=== PATIENT | male | born 1955 | race Caucasian/White ===

== ENCOUNTER 2017-04-06 08:00 | Inpatient (IN) | payer OTHER ==
[~2017-04-06] VITALS: Ht 180.3 cm; Wt 136.4 kg
--- NOTE | ~2017-04-06 | ESTC ---
Cardiac Perfusion Imaging Demographics Patient Name BESSY Sherwood Gender Male Patient Number [id number] Race Visit Number [id number] Ethnicity Corporate ID Room Number G3399 Accession Number [id number] Height 71 inches Date of 1955 Weight 300 pounds Raji Menezes MD Interpreting Lisa Barrett MD Date of study 04/13/2017 Physician Supervising /CORY Queen NM Technologist Paige Vargas APRN Ordering Physician Lisa Barrett MD Stress animal care technician Stress ECG Reading Thad Queen Nurse Gilberto Hermes Physician MAIRA Medications Reviewed with Patient prior to Procedure. Procedure Procedure Type: Nuclear Stress Test:Exercise, Cardiolite Stress Test Procedure Start time: 04/13/2017 12:30 Risk Factors The patient risk factors include:obesity, physical activity, Current/Recent(w/in 1 year) tobacco use, hypercholesterolemia, family history of premature CAD, insulin treated diabetes mellitus, chronic lung disease and dyslipidemia. Conclusions Summary Cardiolite SPECT images demonstrates a inferior wall defect on the rest images with complete redistribution on the stress images. No evidence of inducible reversible defect. Normal TID ratio of 0.95 Gated images demonstrate normal left ventricular systolic function without inducible wall motion abnormalities rendering the above findings most consistent with attenuation defect. LVEF is 65% Stress Protocols Resting HR:78 bpm Resting BP:141/69 mmHg Pre-stress physical exam: Patient has history of COPD and Asthma. Needs preop risk evaluation due to complaints of shortness of breath and "chest Pain". Has history of diabetes mellitus Stress Protocol:Exercise Peak HR:137 bpm HR response: Appropriate Peak BP:178/85 mmHg BP response: Appropriate Predicted HR: 161 bpm HR/BP product:53800 % of predicted HR: 85 Test duration:06:00 min Reason for termination:Target heart rate Exercise effort:Fair Perceived exertion:19 ECG Findings RSR without ST or T wave changes Arrhythmias None Symptoms Extreme shortness of breath. Stress Interpretation Appropriate hemodynamic response to exercise. No significant ST-T wave changes with exercise. EKG portion is negative for ischemia by diagnostic criteria. The Figueredo Treadmill score was +6 .This corresponds to a low risk stress test. Stress supervision and interpretation provided by Rose Mary Oneil APRN . Imaging Results Applied corrections - Motion correction applied High risk findings Summed scores - Summed stress score: 3 - Summed rest score: 8 - Summed difference score: -5 Stress ejection Ejection fraction:65 % EDV :142 ml ESV :49 ml Stroke volume :93 ml LV mass :166 gr Imaging Protocols Rest Stress Isotope:Tc99m Sestamibi IV Isotope: Tc99m Sestamibi IV Isotope dose:15.3 mCi Isotope dose:47.4 mCi Date:04/13/2017 11:22 Date:04/13/2017 12:59 Technique: SPECT Technique: Gated Supine SPECT Supine IV remains in place after procedure. Scan Time:45-60 minutes post Scan Time:15-30 minutes post injection injection Medical History Admission Data Admission date: 04/13/2017 Admission Time: 07:32 Hospital Status: Inpatient. Signatures dtt: Arnold Gonzalez (cardio) dtd: 04/13/17 1230 Physician Self Edit
[2017-04-06] MEDS ORDERED: LANTUS (IN100 UNIT/M SUB-Q (08:11)
[2017-04-06] MEDS ORDERED: LIPITOR80 MG PO (08:12)
[2017-04-06] MEDS ORDERED: NOVOLOG FL100 UNIT/1 SUB-Q (08:12)
[2017-04-06] MEDS ORDERED: TRICOR145 MG PO (08:13)
[2017-04-06] MEDS ORDERED: TENORMIN25 MG PO (08:13)
[2017-04-06] MEDS ORDERED: ZYLOPRIM300 MG PO (08:13)
[2017-04-06] MEDS ORDERED: LEVOTHROID (S125 MCG PO (08:14)
[2017-04-06] MEDS ORDERED: LYRICA100 MG PO (08:15)
[2017-04-06] MEDS ORDERED: LASIX20 MG PO (08:15)
[2017-04-06] MEDS ORDERED: ONGLYZA5 MG PO (08:16)
[2017-04-06] MEDS ORDERED: PRILOSEC20 MG PO (08:16)
[2017-04-06] MEDS ORDERED: LODINE400 MG PO (08:16)
[2017-04-06] MEDS ORDERED: ZYRTEC10 MG PO (08:17)
[2017-04-06] MEDS ORDERED: PERCOCET 5-3251 EACH PO (08:19)
[2017-04-06] MEDS ORDERED: CPAP INH (09:15)
--- NOTE | 2017-04-13 14:04 | NUR ---
PATIENT AND UPSET REGARDING HAVING TO HAVE STRESS TEST. APPOLOGIZED BUT EXPLAINED WE DIDN'T WANT HIM TO HAVE A HEART ATTACK IN SURGERY. STATED, "WE ALL HAVE TO GO SOMETIME". PATIENT STATES HE HAS WAITED 2 YEARS TO HAVE THIS DONE AND IF HE DOESN'T, "THERE WILL BE A HOLE IN THE WALL WHERE I KICK IT OUT" AND THAT SOMEONE'S BUTT IS GOING TO ROLL AND HE DOESN'T CARE WHOSE IT IS. SPOKE WITH DR. JOHNSON ABOUT PATIENT'S CONCERNS AND HOW UPSET HE WAS, DR JOHNSON DID GO IN TO TALK WITH HIM. I CALLED TO [employer] TO TALK WITH THEM AFTER BEING CONTACTED BY ED, STATES SHE WAS IN TO TALK WITH PATIENT AND WANTED US TO BE AWARE HE WAS UPSET. STATES ORDER WASN'T IN YET; I WAS WITH Magdalena FULTON RN WHEN SHE PUT IT IN. CALL TO [employer], JONES (?) STATES SHE WAS WAITING FOR ORDER. ASKED HER TO STAY ON THE PHONE WITH ME TO TALK ME THROUGH PUTTING IT IN COMPUTER WE DON'T NORMALLY DO THESE, SHE DOES HELP ME ENTER IT CORRECTLY. BACK IN TO ROOM TO UPDATE THEM REGARDING NUCLEAR MED, PT STATES HE IS THIRSTY. APPROVED TO GIVE ICE WATER AND CHIPS PER Joan GIBSON CRNA. DID ATTEMPT TO EXPLAIN WE WERE NOT WANTING HIM TO HAVE CORONARY ISSUES DURING SURGERY, PATIENT REPEATEDLY SAID NOTHING WAS GOING TO HAPPEN. UPDATES GIVEN TO Joan GIBSON CRNA, Yong GILL CRNA, AND DR. JOHNSON
--- NOTE | 2017-04-13 15:20 | NUR ---
Hector IRAHETA NURSE CAME AND VISITED WITH THE PATIENT AND HIS TO CANCEL THE SURGERY FOR TODAY AND RE-SCHEDULE FOR WEDNESDAY. THE PATIENT WAS NOT HAPPY AND VERBALLY EXPRESSED HOW UPSET HE WAS TODAY. HE INFORMED ROEL HERRERA RN THAT HE WOULD HAVE TO COME BY HIMSELF ON WEDNESDAY AND EVERYTHING NEEDED TO BE INPLACE ON WEDNESDAY AND DID NOT WANT TO BE CHARGED FOR TODAY. Hector HERRERA RN DID VOICE HER UNDERSTANDING WITH THE PATIENT AND [facility] WORK REMAINS IN ORDER TO DO THIS ON . THE PATIENT WAS DISMISSED WITH HIS AND WILL RETURN ON WEDNESDAY WITH THE SAME INSTRUCTIONS TO BE THE SAME TODAY
== END 2017-04-13 15:20 | disposition disaster alternative care site (69) | DRG 554 ==
LOC: G3N 04-13 07:32
PROVIDERS: ADMIT Orthopaedic Surgery
DX: M19.011 Primary osteoarthritis, right shoulder (principal); I10 Essential (primary) hypertension; Z87.828 Personal history of other (healed) physical injury and trauma; M25.511 Pain in right shoulder; M51.36 Other intervertebral disc degeneration, lumbar region; E78.5 Hyperlipidemia, unspecified; K21.9 Gastro-esophageal reflux disease without esophagitis; J44.9 Chronic obstructive pulmonary disease, unspecified; G47.30 Sleep apnea, unspecified; E66.9 Obesity, unspecified; Z68.38 Body mass index [BMI] 38.0-38.9, adult; Z53.8 Procedure and treatment not carried out for other reasons
CPT/HCPCS: A9500; J1885; J2001; J2795; J7030

== ENCOUNTER 2017-04-15 05:20 | Inpatient (IN) | payer OTHER ==
[~2017-04-15] VITALS: Ht 180.3 cm; Wt 134.2 kg
--- NOTE | ~2017-04-15 | OR ---
PATIENT'S NAME: ASHA JEFFERSON [facility] AGE: 61 Y [address] ROOM: [place] [address] LOCATION: G3N ADMIT DATE: 04/15/2017 OR/Procedure Report DISCHARGE DATE: 04/16/2017 FAMILY PHYSICIAN: Physician New ATTENDING PHYSICIAN: Aleshia Johnson SURGEON: Aleshia Johnson MD CHILD CARE ATTENDANT: 1. Douglas Rodriguez PA-C. 2. Drake Knight CST/RUG SAMPLE BEVELER. 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 Chronic right shoulder rotator cuff tear. Retained hardware at glenoid from previous open anterior stabilization. History of previous failed rotator cuff repair. POSTOPERATIVE DIAGNOSES: Severe right shoulder glenohumeral degenerative joint disease. Chronic right shoulder rotator cuff tear. Retained hardware at glenoid from previous open anterior stabilization. History of previous failed rotator cuff repair. 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 Retained hardware of proximal humerus. Non-repairable right shoulder rotator cuff tear. Rotator cuff tendinosis (supraspinatus and subscapularis). Multiple intraarticular loose bodies, right shoulder. PROCEDURES PERFORMED: Right shoulder reverse total shoulder arthroplasty. Removal of multiple loose bodies. Removal of retained hardware from right humeral head and right glenoid. ANESTHESIA: General endotracheal anesthesia plus subcutaneous and periarticular local anesthesia (ropivacaine with epinephrine). DRAINS: None. SPECIMENS: None. COMPLICATIONS: None. EXPLANTS: Metallic suture anchor from glenoid. PEEK suture anchors from proximal humerus x2. IMPLANTS: Biomet comprehensive reverse total shoulder arthroplasty system with 25 mm uncemented glenoid baseplate. A 6.5 mm glenoid baseplate locking screw x1. A 4.75 mm glenoid baseplate locking screws x4. A 36 mm diameter glenosphere with +3 mm offset. Size 15 x 83 mm uncemented humeral stem with 44 mm standard humeral tray and standard humeral polyethylene insert with 36 mm inner diameter radius of curvature. PATIENT'S NAME: ASHA JEFFERSON [facility] AGE: 61 Y [address] ROOM: [place] [address] LOCATION: G3 ADMIT DATE: 04/15/2017 OR/Procedure Report DISCHARGE DATE: 04/16/2017 FAMILY PHYSICIAN: Physician, New ATTENDING PHYSICIAN: Aleshia Johnson ESTIMATED BLOOD LOSS: Approximately 150 mL. INDICATION FOR SURGERY: Mr. Jefferson is a 61-year-old male, presenting with severe right shoulder glenohumeral degenerative joint disease and associated severely compromised activities of daily living. He has associated chronic right shoulder rotator cuff insufficiency. He has undergone previous unsuccessful rotator cuff repair and a previous open anterior stabilization. Risks, benefits, limitations, and alternatives to this procedure have been thoroughly reviewed and informed consent has been granted. We have specifically reviewed risks and implications of infection, stiffness, instability, neurovascular complications, wear, loosening, and potential need for revision. I have placed particular emphasis on the necessity to comply with recommended postoperative activity restrictions so as to minimize the potential for premature wear and/or loosening. He is aware that failure to comply with his activity restrictions could lead to the need for revision earlier than what otherwise be necessary. I have informed him that he may require revision during his lifetime (even he is perfectly compliant with recommended restrictions). I have asked him to not proceed with reverse total shoulder arthroplasty unless he is absolutely certain that he understands these restrictions and unless he is absolutely certain that he is willing and capable of complying with these restrictions. Informed consent granted. DESCRIPTION OF PROCEDURE: The patient placed in a modified beach chair position after administration of general endotracheal anesthesia and prophylactic antibiotics. The right shoulder and right upper extremity were prepped and draped with vigilant sterile technique. Passive external rotation was 55 degrees. Passive forward elevation was 160 degrees. There were multiple well-healed arthroscopy portal scars. There was a well-healed deltopectoral scar. There was no deltoid atrophy. There were no active skin lesions or masses. The right shoulder was approached through the preexisting deltopectoral scar. Blunt dissection proceeded down to the deltopectoral interval. This was bluntly developed and the deltoid was mobilized laterally. The axillary nerve was identified and was vigilantly protected throughout the entire case. There was severe attenuation of the subscapularis tendon. The tendon was quite thin. There was nonresorbable suture material at the lateral margin of the subscapularis tendon insertion. It appeared that the subscapularis tendon had partially detached and had partially retracted medially and that there was lengthy soft tissue wedging the gap between the majority of the subscapular tendon and the lesser tuberosity. There was a full-thickness intrasubstance defect extending obliquely from the anterior margin of the supraspinatus PATIENT'S NAME: ASHA JEFFERSON [facility] AGE: 61 Y [address] ROOM: [address] [place], [place] [address] LOCATION: [facility] ADMIT DATE: 04/15/2017 OR/Procedure Report DISCHARGE DATE: 04/16/2017 FAMILY PHYSICIAN: Antoni Campos ATTENDING PHYSICIAN: Aleshia Johnson tendon to the mid substance of the infraspinatus tendon. The residual supraspinatus and infraspinatus tendon fibers were adherent to a partially mobile fragments of apparent heterotopic bone measuring approximately 1 x 2 cm x 5 mm thick. The quality of the residual rotator cuff tendon tissue was extremely poor. The tendon was thickened and degenerative. Furthermore, there was intrasubstance tendon tear medial to the insertion with retraction of the medial segment all the way to the glenoid margin. The situation was deemed to be unsuitable for successful repair. Residual intact portion of the infraspinatus tendons were left intact. Degenerative remnants of the supraspinatus tendon were excised. The long head of the biceps was absent. There was full-thickness loss of articular cartilage throughout the glenoid and throughout the humeral head. The humeral head resection was performed in 20 degrees of retroversion. There was a large osteophyte at the inferior and posterior margins of the humeral head. This was resected. PEEK suture anchors were encountered at the greater tuberosity and these were removed. The heads of the 2 metallic suture anchors were encountered at the anterior glenoid approximately 5 mm posterior to the anterior glenoid margin. These were flushed with the exposed subchondral bone. The entire inferior anchor was removed. The interfering portions of the superior anchor removed during the reaming process. Several intraarticular loose bodies were removed during exposure of the glenoid. This ranged in size from 5 mm to 8 mm in diameter. Circumferential glenoid exposure was obtained. The glenoid face was reamed over a guidewire. The glenoid baseplate was impacted into position and obtained an excellent press fit. Supplemental fixation was achieved with a single 6.5 mm central locking screw and 4 peripheral locking screws. All screws obtained excellent purchase. The final glenosphere was impacted into position with the adaptor in its maximally eccentric orientation. Direct visualization and circumferential palpation of the glenosphere confirmed that it had been fully seated and solidly fixed. Attention was refocused on the proximal humerus. The proximal humerus was reamed to a size 15 with tapered reamers. The size 15 reamer tightly engaged the endosteal cortex of the proximal humerus. The proximal humerus was subsequently broached to a size 15. The size 15 broach obtained excellent axial and rotational stability. Trial reductions were performed and these confirmed appropriate stability, range of motion, and soft tissue tension. Absence of significant tension on the axillary nerve was confirmed. Adhesions on the undersurface of the subscapularis tendons were mobilized. PATIENT'S NAME: ASHA JEFFERSON [facility] AGE: 61 Y [address] ROOM: [address] [address] LOCATION: [facility] ADMIT DATE: 04/15/2017 OR/Procedure Report DISCHARGE DATE: 04/16/2017 FAMILY PHYSICIAN: Antoni Campos ATTENDING PHYSICIAN: Aleshia Johnson The trial humeral component was removed and the final humeral component was impacted into position. This obtained excellent axial and rotational stability. The trunnion was thoroughly cleansed and dried prior to impaction of the final humeral tray into position. A final reduction was performed. The construct was confirmed to be stable and free of impingement with internal and external rotation with the arm at the side, with the arm at 90 degrees of abduction, and with the arm forward flexed to 90 degrees. The joint space was thoroughly irrigated several times during the case (as well as at the conclusion of the case) with bacteriostatic pulsatile saline lavage. The attenuated subscapularis tendon was reapproximated with multiple figure-of- eight interrupted #2 Orthocord sutures. Subcutaneous tissues were irrigated one final time after infiltration of the periarticular soft tissues with local anesthetic. The skin was closed with simple deep interrupted 0 Vicryl, followed by superficial buried interrupted 2-0 Vicryl and a running subcuticular 3-0 Monocryl suture followed by Dermabond. The dressings consisted of a sterile occlusive Mepilex dressing. This was applied after Steri-Strips with benzoin. A shoulder immobilizer was placed and the patient was extubated and transported to the postanesthesia care unit in stable condition. It should be noted that the physician's care management assistant played an active, integral role throughout this entire operation. By providing expert retraction, they greatly facilitated and expedited safe and effective exposure of the proximal humerus and glenoid for preparation and implantation of the components. They were also actively involved in patient's positioning, prepping and draping, as well as wound closure. ALESHIA JOHNSON MD PATIENT'S NAME: ASHA JEFFEROSN [facility] AGE: 61 Y [address] ROOM: [address] [address] LOCATION: [facility] ADMIT DATE: 04/15/2017 OR/Procedure Report DISCHARGE DATE: 04/16/2017 FAMILY PHYSICIAN: Physician, New ATTENDING PHYSICIAN: Aleshia Johnson/kathleen /[id number] d: 04/16/17 2151 t: 04/19/17 0923, OPERATIVE SUMMARY
[~2017-04-15 05:20] MED LIST: CPAP INH; LANTUS (IN100 UNIT/M SUB-Q; LASIX20 MG PO; LEVOTHROID (S125 MCG PO; LIPITOR80 MG PO; LODINE400 MG PO; LYRICA100 MG PO; NOVOLOG FL100 UNIT/1 SUB-Q; ONGLYZA5 MG PO; PERCOCET 5-3251 EACH PO; PRILOSEC20 MG PO; TENORMIN25 MG PO; TRICOR145 MG PO; ZYLOPRIM300 MG PO; ZYRTEC10 MG PO
== END 2017-04-16 13:30 | disposition disaster alternative care site (69) | DRG 483 ==
LOC: G3N 05:20
PROVIDERS: ADMIT Orthopaedic Surgery
DX: M19.011 Primary osteoarthritis, right shoulder (principal); Z68.41 Body mass index [BMI] 40.0-44.9, adult; I10 Essential (primary) hypertension; M54.12 Radiculopathy, cervical region; M54.16 Radiculopathy, lumbar region; M54.17 Radiculopathy, lumbosacral region; E11.9 Type 2 diabetes mellitus without complications; E78.5 Hyperlipidemia, unspecified; E03.9 Hypothyroidism, unspecified; Z87.891 Personal history of nicotine dependence; K21.9 Gastro-esophageal reflux disease without esophagitis; E66.01 Morbid (severe) obesity due to excess calories; J44.9 Chronic obstructive pulmonary disease, unspecified; G47.30 Sleep apnea, unspecified
CPT/HCPCS: A9270; C1713; C1776; J0171; J1170; J1885; J2001; J2405; J2765; J2795; J3010; J7030